=== PATIENT | female | born 1985 | race Caucasian/White ===

== ENCOUNTER 2021-02-23 14:48 | Emergency (ER) | payer OTHER, SELFPAY ==
[2021-02-23 14:54] VITALS: BP 135/88; PULSE 81; RESP 16; TEMP 36.8; O2SAT 98
[2021-02-23 15:01] VITALS: BP 135/88; PULSE 81; RESP 16; TEMP 36.8; O2SAT 98
--- NOTE | 2021-02-23 15:06 | ED.DIZZY ---
HPI - Dizziness General Chief Complaint: Dizziness Stated Complaint: dizzy/light headed/ear pain Time Seen by Provider: 02/23/21 15:06 Source: patient and RN notes reviewed Mode of arrival: ambulatory Limitations: no limitations History of Present Illness HPI Narrative: 35-year-old female who denies any significant past medical history presents with concern for dizziness. Reports ear pain when she touched her left ear this morning. She denies any associated drainage, nasal congestion, rhinorrhea, fever, decreased hearing. She denies headache, weakness in any extremity, vision changes. Reports dizziness started yesterday, is exacerbated by lying down and standing up from lying down, head position changes while laying down. She denies associated vomiting. MD elicited complaint: dizziness Related Data Home Medications Medication Instructions Recorded Confirmed asenapine maleate mg SUBLINGUAL 02/23/21 bupropion HCl mg PO 02/23/21 modafinil mg 02/23/21 oxcarbazepine 02/23/21 propranolol 02/23/21 semaglutide (weight loss) [Wegovy] mg SUBCUT 02/23/21 Allergies Allergy/AdvReac Type Severity Reaction Status Date / Time No Known Allergies Allergy Unknown Unverified 05/26/18 08:32 Review of Systems Review of Systems: CONSTITUTIONAL: Denies malaise, chills, sweats, or fever. EYES: Denies visual changes, redness, or discharge. ENT: Denies rhinorrhea, congestion, sinus pain, or sore throat. Reports one episode of external ear pain CARDIOVASCULAR: Denies chest pain, palpitations, or edema. RESPIRATORY: Denies cough or dyspnea. GASTROINTESTINAL: Denies abdominal pain, nausea, vomiting, diarrhea NEUROLOGIC: Denies numbness, weakness, or headache. Reports intermittent dizziness All systems reviewed & are unremarkable except as noted in HPI and below PMFSH Family History Family History (Updated 02/08/19 @ 14:43 by DOCTOR UNKNOWN) Other Family history of alcoholism Family history of blood dyscrasia Social History Social History Smoking status: Former smoker Second hand tobacco smoke exposure: No Smoking end date: 06/26/11 Alcohol intake: current Comments At time of signature, agree with nursing past medical, surgical, social and family history. There is no relevant family history pertinent to the presenting complaint Exam Narrative: GENERAL: Well-appearing, well-nourished, and in no acute distress. HEAD: Normocephalic, atraumatic. EYES: PERRLA, conjunctivae clear, and EOMI. No nystagmus. ENT: Nares clear. Mucous membranes moist. TM pearly miranda with sharp light reflex bilaterally; no tragal tenderness. Oropharynx without erythema or lesions. Tonsils not enlarged and without exudate. NECK: Supple. No lymphadenopathy. No jugular venous distension, thyromegaly, or carotid bruits. Carotids were easily palpable bilaterally. CHEST: No respiratory distress.Speaks in full sentences. HEART: Regular rate and rhythm. No murmur heard. EXTREMITIES: Gross normal range of motion. Gross normal strength and sensation. SKIN: Warm, dry, no rash. NEURO: Alert and oriented x3. No focal deficits. Cranial nerves II through XII grossly intact. Monserrat-Hallpike test positive on the right PSYCH: Normal mood and affect Course Course Emergency Course: Patient is aware of diagnosis, understands and agrees to treatment plan. Anticipatory guidance given. Patient agrees to follow-up as directed and is aware of reasons to seek care at the emergency department. Portions of this record may have been created with voice recognition software Vital Signs Vital signs: Vital Signs Temperature 98.3 F 02/23/21 14:54 Pulse Rate 81 02/23/21 14:54 Respiratory Rate 16 02/23/21 14:54 Blood Pressure 135/88 02/23/21 14:54 Pulse Oximetry 98 02/23/21 14:54 Temperature 98.3 F 02/23/21 15:01 Pulse Rate 81 02/23/21 15:01 Respiratory Rate 16 02/23/21 15:01 Blood Pressure 135/88 02/23/21 15:01 Pulse Oximetry 98
== END 2021-02-23 15:24 | disposition home or self-care (01) ==
PROVIDERS: Emergency Provider Nurse Practitioner
DX: R42 Dizziness and giddiness (principal); Z87.891 Personal history of nicotine dependence
CPT/HCPCS: 99213; G0463